=== PATIENT | female | born 1995 | race Caucasian/White ===

== ENCOUNTER 2023-11-13 09:36 | Emergency (ER) | payer OTHER, SELFPAY ==
[2023-11-13 09:39] VITALS: BP 110/70
--- NOTE | 2023-11-13 10:03 | ED.GENMED ---
History of Present Illness
General
Chief Complaint: Rabies
Time Seen by Provider: 11/13/23 10:02
Travel History
Have you had any contact with someone who has COVID-19?: No
Do you have any symptoms of coronavirus? Fever > 100 degrees, chills, cough, shortness of breath, sore throat, loss of taste or smell, muscle aches, or headache?: No
History of Present Illness
History of Present Illness:
28-year-old female presents to the emergency department for second rabies vaccination. She states she was exposed to rabies this past weekend while in an air [place] in [place], will question about the exposure she informs me she was told by the sausage stringer
of the air [employer] that 'birds were living in the chimney and above the stove'. When asked if there is any other exposure she denies. Patient is informed that there is no concern for rabies exposure from parents but she is still requesting vaccination
series due to unknown validity of the homeowners report
Review of Systems
Review of Systems
Allergies reviewed?: Yes
All Other Systems: ROS reviewed and negative except as documented in HPI and ROS
Phy Exam
Physical Exam
Physical Exam:
GEN: Well appearing, NAD, WDWN
HEENT: Oral mucosa moist, no scleral icterus
Cardiac: Regular rate
Lung: No respiratory distress, no tachypnea
MSK: No gross deformity or injuries
Skin: Good color, no pallor or jaundice, no rashes
Neuro: AO x3, moves all extremities freely
Psych: Calm, cooperative
Course
Orders/Labs/Results
Orders:
Orders
11/13/23 10:30
Rabies Vaccine (Pcec)/Pf [Rabavert Rabies Vacc W-Diluent] 2.5 unit IM .ONCE ONE
Vital Signs
Initial and Last Documented VS:
Initial Vital Signs
Temp Pulse BP Pulse Ox
98.3 F 71 110/70 100
11/13/23 09:39 11/13/23 09:39 11/13/23 09:39 11/13/23 09:39
Last Documented Vital Signs
Temp Pulse Resp BP Pulse Ox
98.3 F 76 20 119/74 99
11/13/23 09:39 11/13/23 10:56 11/13/23 10:56 11/13/23 10:56 11/13/23 10:56
MDM/Problems Addressed
MDM/Problems Addressed:
Reiterated to the patient that she does not require rabies postexposure prophylaxis if the exposure was truly due to birds but she would like to receive this out of an abundance of caution
*Critical Care Note
Total Time (30-74mins, 75-104mins- exclusive of procedures): Not Applicable
ED Attending Note
-
Portions of this chart may have been created with voice recognition software.� Occasional wrong word or��sound alike� substitutions may have occurred due to the inherent limitations of voice recognition software.
Discharge Plan
Departure
Patient Disposition: Home (Routine Discharge)
Date of Disposition: 11/13/23
Time of Disposition: 10:07
Patient with high blood pressure during this ER visit?: No
Discharge Problem:
Need for post exposure prophylaxis for rabies
Prescriptions:
New
Imovax Rabies Vaccine (PF) 2.5 unit recon soln
1 ml IM ONCE Qty: 2 0RF
Rx Instructions:
Give IM on 11/16 and 11/23
Stand Alone Forms: Rabies Vaccine Post Exp Dosing
Activity Restrictions/Additional Instructions:
There is no risk of rabies from birds. However, given that your rabies series was started, we will continue the series as planned
Interventions
Interventions:
*Risk Screen - Suicide Last Done: 11/13/23 10:30
*General Assessment Last Done: 11/13/23 10:30
*Neglect/Abuse Screening Last Done: 11/13/23 10:30
*ED COVID-19 Vaccine History Last Done: 11/13/23 09:43
*Nursing Disposition Last Done: 11/13/23 10:56
Discharge Date and Time
Discharge Date/Time: 11/13/23 10:57
Print Language: MALAY
[2023-11-13] MEDS: RABAVERT RABIES VACC W-DILUENT 2.5 UNIT IM (10:34)
[2023-11-13 10:56] VITALS: BP 119/74
== END 2023-11-13 10:57 | disposition home or self-care (01) ==
LOC: EMR 09:36
PROVIDERS: EMERGENCY PHYSICIAN Emergency Medicine
DX: Z20.3 Contact with and (suspected) exposure to rabies (principal); Z29.14 Encounter for prophylactic rabies immune globulin; Z23 Encounter for immunization
CPT/HCPCS: 99284; 90471; 90675

== ENCOUNTER 2024-06-24 11:39 | Emergency (ER) | payer OTHER, SELFPAY ==
[2024-06-24 12:06] VITALS: BP 95/60
[2024-06-24 12:23] VITALS: BP 81/64
[2024-06-24 13:00] VITALS: BP 97/63
[2024-06-24 13:08] LABS: AST (SGOT) 29 U/L (14-36); Alkaline Phosphatase 38 U/L (38-126); Blood Urea Nitrogen 18 mg/dl (7-17); Calcium 10.1 mg/dl (8.4-10.2); Carbon Dioxide 16 mmol/L (22-30); Chloride 105 mmol/L (98-107); Glucose 143 mg/dl (70-99); Potassium 3.6 mmol/L (3.5-5.1); Sodium 137 mmol/L (135-145); Total Bilirubin 2.7 mg/dl (0.2-1.3); Total Protein 7.8 g/dl (6.3-8.2); eGFR > 60.00
[2024-06-24 13:11] LABS: % Basophils 0.4 % (0-2); % Eosinophils 0.5 % (0-6); % Immature Granulocytes 0.5 % (0-0.5); % Lymphocytes 2.7 % (20.5-51.1); % Monocytes 4.9 % (1.7-9.3); Absolute Basophils 0.1 10^3/uL (0-0.2); Absolute Eosinophils 0.1 10^3/uL (0-0.7); Absolute Immature Granulocytes 0.1 10^3/uL (0-0.05); Absolute Lymphocytes 0.5 10^3/uL (1.2-3.4); Absolute Monocytes 0.8 10^3/uL (0.1-0.6); Absolute Neutrophils 15.5 10^3/uL (1.4-6.5); Hematocrit 40.6 % (37.0-47.0); Hemoglobin 14.4 g/dL (12.0-16.0); Mean Corp Hgb Conc. 35.5 g/dL (33.0-37.0); Mean Corpuscular Volume 87.3 fL (81.0-99.0); Nucleated Red Blood Cells % 0 %; Platelet Count 296 10^3/uL (130-400); Red Blood Cell Count 4.65 10^6/uL (4.20-5.40); Red Cell Dist. Width 13.1 % (11.5-14.5)
[2024-06-24 13:15] LABS: ALT (SGPT) 35 U/L (0-35)
[2024-06-24] MEDS: ZOFRAN 4 MG IV (13:57)
[2024-06-24 14:01] VITALS: BP 100/55
--- NOTE | 2024-06-24 14:20 | ED.GENMED ---
History of Present Illness
General
Chief Complaint: Abdominal Symptoms
Source: patient and family
Exam Limitations: none
Time Seen by Provider: 06/24/24 14:08
Nursing documentation reviewed up to this point in time: agreed with
History of Present Illness
History of Present Illness:
29-year-old female presents emerged department due to nausea vomiting and diarrhea. She fell like she was going to pass out. She has some mild abdominal cramping. History of ulcerative colitis, did not feel like this. She vomited numerous times.
Past History
Past History
ED Past Medical History: Other (Ulcerative colitis)
ED Past Surgical History: Other (Gum graft 2022)
Social History
Tobacco: Non-smoker
Alcohol: None
Drug: None
Employment: Employed
Review of Systems
Review of Systems
Allergies reviewed?: Yes
All Other Systems: Not applicable
Constitutional: Reports no symptoms
EENT: Reports no symptoms
Respiratory: Reports no symptoms
Cardiac: Reports no symptoms
ABD/GI: Reports vomiting and diarrhea; Denies black stools
: Reports no symptoms
Musculoskeletal: Reports no symptoms
Skin: Reports no symptoms
Neurological: Reports no symptoms
Endocrine: Reports no symptoms
Hematologic/Lymphatic: Reports no symptoms
Psychiatric: Reports no symptoms
Phy Exam
Physical Exam
Physical Exam:
Physical Exam
General: no apparent distress, not acutely ill
Neck: supple. no meningeal signs. normal posterior pharynx
Heart: s1/s2 regular rate and rhythm, no murmur. equal radial
pulses.
HEENT: Pupils equal round reactive to light, EOMI
Lungs: no acute respiratory distress. clear bilaterally
Abdomen: normal bowel sounds. not tender. no CVAT
Neuro: alert and oriented. no focal neurological deficits cranial nerves II through XII intact
Skin: no rash
Psychiatric: well kept. interactive and cooperative
Extremities: no edema. no calf tenderness. negative homans. good distal pulses
Course
Orders/Labs/Results
Orders:
Orders
06/24/24 12:18
Complete Blood Count/With Diff Urgent
Comprehensive Metabolic Panel Urgent
06/24/24 13:54
Ondansetron Injectable [Zofran] 4 mg IV NOW STA
06/24/24 14:18
Electrocardiogram (*1) Urgent
Reason for Study: Tachycardia
EKG- Treatment ONCE
06/24/24 14:19
0.9% Sodium Chloride 1000 ml [Nss] 1,000 ml IV BOLUS
Abnormal Lab Results
06/24/24
12:18
WBC 17.0 H 10^3/uL
(4.8-10.8)
MPV 13.0 H fL
(7.4-10.4)
Abs Immat Gran (auto) 0.1 H 10^3/uL
(0-0.05)
Absolute Neuts (auto) 15.5 H 10^3/uL
(1.4-6.5)
Absolute Lymphs (auto) 0.5 L 10^3/uL
(1.2-3.4)
Absolute Monos (auto) 0.8 H 10^3/uL
(0.1-0.6)
Neutrophils % 91.0 H %
(42.2-75.2)
Lymphocytes % 2.7 L %
(20.5-51.1)
Carbon Dioxide 16 L mmol/L
(22-30)
BUN 18 H mg/dl
(7-17)
Glucose 143 H mg/dl
(70-99)
Total Bilirubin 2.7 H mg/dl
(0.2-1.3)
06/24/24 12:18
06/24/24 12:18
Vital Signs
Initial and Last Documented VS:
Initial Vital Signs
Temp Pulse Resp Pulse Ox
97.5 F 124 30 100
06/24/24 11:58 06/24/24 11:58 06/24/24 11:58 06/24/24 11:58
Last Documented Vital Signs
Temp Pulse Resp BP Pulse Ox
97.5 F 98 20 104/56 100
06/24/24 11:58 06/24/24 16:00 06/24/24 16:00 06/24/24 15:00 06/24/24 15:50
*Pulse Oximetry
Patient hypoxic: no
*EKG
Interpreted by ED Provider?: Yes
EKG Intrepretation Date: 06/24/24
EKG Intrepretation Time: 14:23
Interpretation: normal
Comparison EKG: no comparison EKG present
Heart Rate: 95
Rate: normal
Rhythm: sinus
[place]: normal axis
Interval: normal interval
QRS Pattern: normal QRS
Ischemia: no ischemia
*Rent And Miscellaneous Remittance Clerk Interpretation
Rate: normal
Interpretation: normal
Heart Rate: 88
Rhythm: sinus
*Critical Care Note
Total Time (30-74mins, 75-104mins- exclusive of procedures): Not Applicable
Patient Management
Social determinants of health affecting care: Living situation and Strong social support
Escalation/DeEscalation of care consider admission/obs:
Admit not indicated
ED Attending Note
-
Portions of this chart may have been created with voice recognition software.� Occasional wrong word or��sound alike� substitutions may have occurred due to the inherent limitations of voice recognition software.
Discharge Plan
Departure
Patient Disposition: Home (Routine Discharge)
Date of Disposition: 06/24/24
Time of Disposition: 16:17
Patient with high blood pressure during this ER visit?: No
Condition: Good
Discharge Problem:
Nausea, vomiting and diarrhea
Instructions: Diarrhea in teens and adults, Nausea and Vomiting, Adult (DC)
Prescriptions:
New
ondansetron 4 mg tablet,disintegrating
4 mg PO Q8H PRN (Reason: nausea and vomiting) 4 Days Qty: 5 0RF
Rx Instructions:
take at separate time from lexapro
No Action
Imovax Rabies Vaccine (PF) 2.5 unit recon soln
1 ml IM ONCE Qty: 2 0RF
Rx Instructions:
Give IM on 11/16 and 11/23
Referrals:
NONE,* [Family Provider] -
Interventions
Interventions:
*Risk Screen - Suicide Last Done: 06/24/24 11:58
*General Assessment Last Done: 06/24/24 11:58
*Neglect/Abuse Screening Last Done: 06/24/24 11:58
*ED COVID-19 Vaccine History Last Done: 06/24/24 12:14
ZW-Pabhyo-[id number] Assessment Last Done: 06/24/24 12:14
Discharge Date and Time
Print Language: CITIZEN OF [place]
[2024-06-24] MEDS: NSS 1000 IV (14:55)
[2024-06-24 15:00] VITALS: BP 104/56
== END 2024-06-24 16:31 | disposition home or self-care (01) ==
LOC: EMR 11:39
PROVIDERS: Emergency Medicine; EMERGENCY PHYSICIAN Emergency Medicine
DX: R11.2 Nausea with vomiting, unspecified (principal); R19.7 Diarrhea, unspecified; K51.90 Ulcerative colitis, unspecified, without complications
CPT/HCPCS: 99283; 96374; 96361; 80053; 85025; 93005